=== PATIENT | male | born 1960 | race Caucasian/White ===

== ENCOUNTER 2018-02-13 22:27 | Emergency (ER) | payer BC, OTHER ==
[2018-02-13] MEDS: DERMABOND TOPICAL SKIN ADHESIVE TOP (22:45)
[2018-02-13] MEDS: ADACEL/BOOSTRIX VACCINE (DIPHTH/PERTUSS/ACELL/TETANUS)0.5ML SYR (90715) IM (22:58)
== END 2018-02-14 00:20 | disposition home or self-care (01) ==
LOC: M ED 02-14 00:20
DX: S01.01XA Laceration without foreign body of scalp, initial encounter (principal); S40.211A Abrasion of right shoulder, initial encounter; S81.811A Laceration without foreign body, right lower leg, initial encounter; V93.39XA Fall on board unspecified watercraft, initial encounter; Y92.89 Other specified places as the place of occurrence of the external cause; Z79.82 Long term (current) use of aspirin
CPT/HCPCS: 90715